=== PATIENT | female | born 1935 | race Caucasian/White ===

== ENCOUNTER 2017-10-11 02:06 | Inpatient (IN) | payer OTHER, MEDICARE ==
[2017-10-11] VITALS (9 sets, daily range): BP systolic 83–120; BP diastolic 47–82
[~2017-10-11] VITALS: Ht 160 cm; Wt 80.7 kg
[~2017-10-11 02:06] MED LIST: ALDACTONE25 MG PO; ALLOPURINOL 10100 M1 PO; ALTACE10 MG PO; ASPIRIN81 M2 PO; BENICAR HCT 401 EAC1 PO; BENICAR40 MG PO; CALCIUM + VITA1 EAC1 PO; CALCIUM + VITA1 EAC2 PO; CARVEDILOL12.5 MG PO; DILTIAZEM 24HR120 M1 PO; GLUCOPHAGE500 MG PO; LANTUS SQ; LASIX 80 MG TAB80 MG PO; NEURONTIN 300300 M1 PO; OMEGA 3-6-9 CO1 EACH PO; POTASSIUM20 PO; VITAMIN D1000 UNI1 PO; ZOCOR 20 MG TAB20 M1 PO
[2017-10-11] MEDS ORDERED: LASIX 20 MG TAB20 MG (02:39)
[2017-10-11] MEDS ORDERED: OMEGA RED (02:40)
[2017-10-11] MEDS ORDERED: VIACTIV SOFT C1 EACH (02:41)
[2017-10-11 02:45] LABS: ABSOLUTE BASOPHILS 0.1 thou/uL (0.0-0.2); ABSOLUTE EOSINOPHILS 0.2 thou/uL (0.0-0.7); ABSOLUTE LYMPHOCYTES 1.9 thou/uL (0.8-5.3); ABSOLUTE MONOCYTES 0.9 thou/uL (0.0-1.2); ABSOLUTE NEUTROPHILS 9.9 thou/uL (1.6-8.1); BASOPHILS 0.8 %; EOSINOPHILS 1.4 %; MCH 32.4 pg (26.0-34.0); MCHC 32.7 g/dL (28.0-37.0); MCV 99.2 fL (80.0-100.0); MONOCYTES 6.7 %; MPV 9.7 fl. (7.2-11.1); NUCLEATED RBCS 0 /100WBC; PLATELET COUNT* 203 thou/uL (150-400); POLYS 76.1 %; RBC 4.94 mil/uL (4.20-5.00); RDW-CV 14.2 % (10.5-14.5)
[2017-10-11 02:59] LABS: ANION GAP 11 mmol/L (7-16); BUN 64 mg/dL (7-18); CALCIUM 8.7 mg/dL (8.5-10.1); CHLORIDE 99 mmol/L (98-107); CO2 24 mmol/L (21-32); CREATININE 2.3 mg/dL (0.6-1.3); POTASSIUM 4.8 mmol/L (3.5-5.1); SODIUM 134 mmol/L (136-145)
[2017-10-11 03:02] LABS: GLUCOSE 600 mg/dL (70-99)
[2017-10-11 03:08] LABS: ALBUMIN 3.1 g/dL (3.4-5.0); ALKALINE PHOSPHATASE 145 U/L (46-116); LIPASE 280 U/L (73-393); NT-PRO BRAIN NAT PEPTIDE 870 pg/mL (<300); SGOT 27 U/L (15-37); SGPT 39 U/L (30-65); TOTAL BILIRUBIN 0.3 mg/dL (<0.1-1.0); TOTAL PROTEIN 7.3 g/dL (6.4-8.2); TROPONIN-I LEVEL <0.06 ng/mL (<0.06)
--- NOTE | 2017-10-11 08:35 | NUR ---
PT ADMITTED TO ROOM 218 DURING THIS SHIFT; VSS, A+OX4, DENIES PAIN. SHE IS ABLE TO COMMUNICATE HER NEEDS TO STAFF EFFECTIEVLY. SHE HAS DENIED THE NEED FOR PAIN MEDICATION UP TO THIS TIME. INSULIN GTT FOR BS>500 STARTED AFTER ADMISSION TO THE FLOOR; TOLERATED WELL BY PT.
--- NOTE | 2017-10-11 10:15 | EKG ---
[place] [address] ELECTROCARDIOGRAM REPORT Name: KECIA WARNER I Room: [address] ADM IN .R.#: [id number] Admission: 10/11/17 Attend Phys: Lenka Brannon MD Discharge: Date of : 39 Report #: [id number] THIS REPORT FOR: //name// [facility] ED Test Date: 2017-10-11 Test Time: 02:23:13 Pat Name: KECIA WARNER Department: Room: [facility] Gender: F Manager Ed: [place] : 1935 Requested By: Anand Han Order Number: [id number] MD: Kelvin Randhawa Measurements Intervals [place] Rate: 48 P: 38 DE: 155 QRS: -44 QRSD: 137 T: 146 QT: 526 QTc: 470 Interpretive Statements Sinus bradycardia with ventricular escape beats nonspecific st changes Electronically Signed On 10-11-2017 10:15:26 CDT by Kelvin Randhawa [email or web address] <ELECTRONICALLY SIGNED> By: Kelvin Randhawa MD, [facility] 10/11/17 1015 0223 0223 Kelvin Randhawa MD, FACC /EPI
[2017-10-11 13:09] LABS: URINE BILIRUBIN NEGATIVE (Negative); URINE BLOOD TRACE (Negative); URINE CLARITY CLEAR; URINE COLOR YELLOW; URINE GLUCOSE-RANDOM 3+ (Negative); URINE KETONES NEGATIVE (Negative); URINE LEUKOCYTES-REFLEX 1+ (Negative); URINE NITRITE-REFLEX NEGATIVE (Negative); URINE PROTEIN NEGATIVE (Negative); URINE SPECIFIC GRAVITY 1.025 (1.005-1.030); URINE UROBILINOGEN 0.2 E.U./dl (0.2-1.0)
[2017-10-11 13:24] LABS: BACTERIA-REFLEX 1-9 Few /HPF (None Seen); CASTS None Seen /LPF (None Seen); CRYSTALS None Seen /LPF (None Seen); MUCUS None Seen strn/LPF (None Seen); SQUAMOUS 4-10 Moderate /LPF (0-3); URINE RBC 3-10 Few /HPF (0-2); URINE WBC-REFLEX 6-15 Few /HPF (0-5)
--- NOTE | 2017-10-11 15:50 | 2DMMODE ---
[place] [address] 2 D/M-MODE ECHOCARDIOGRAM Name: STEPHANELINDAKECIA Melvin Room: [facility] ADM IN [facility]#: [id number] Admission: 10/11/17 Attend Phys: Lenka Brannon, Discharge: Date of : 39 Date of Service: 10/11/17 1550 Report #: [id number] THIS REPORT FOR: //name// APPROVED REPORT Study performed: 10/11/2017 12:10:23 EXAM: Comprehensive 2D, Doppler, and color-flow Echocardiogram Patient Location: In-Patient Room #: 218 Status: routine BSA: 1.82 HR: 58 bpm BP: 113/82 mmHg Rhythm: NSR Other Information Study Quality: Good Indications Atrial Fibrillation hyperglycemia, dehydration Volumes Left Atrial Volume (Systole) LA ESV Index: 31.00 mL/m2 Left Ventricle The left ventricle is normal size. There is mild global hypokinesis. Mild concentric left ventricular hypertrophy. Left ventricular systolic function is mildly decreased. LVEF is 45-50%. Transmitral Doppler flow pattern suggests restrictive physiology. Right Ventricle The right ventricle is normal size. The right ventricular systolic function is normal. Pacemaker lead is present in the right ventricle. Atria Left atrium is mildly dilated. The right atrium size is normal. Aortic Valve The aortic valve is normal in structure. No aortic regurgitation is present. There is no [place] [address] 2 D/M-MODE ECHOCARDIOGRAM Name: KECIA WARNER I Room: [address] IN M.R.#: [id number] Admission: 10/11/17 Attend Phys: Lenka Brannon, Discharge: Date of : 39 Date of Service: 10/11/17 1550 Report #: [id number] Mitral Valve The mitral valve is normal in structure. Trace mitral regurgitation. No evidence of mitral valve stenosis. Tricuspid Valve The tricuspid valve is normal in structure. Trace tricuspid regurgitation. Pulmonic Valve The pulmonary valve is normal in structure. There is no pulmonic valvular regurgitation. Great Vessels The aortic root is normal in size. IVC is normal in size and collapses with >50% inspiration Pericardium There is no pericardial effusion. <Conclusion> The left ventricle is normal size. Mild concentric left ventricular hypertrophy. Left ventricular systolic function is mildly decreased. LVEF is 45-50%. Transmitral Doppler flow pattern suggests restrictive physiology. There is mild global hypokinesis. Left atrium is mildly dilated. Trace mitral regurgitation. Trace tricuspid regurgitation. IVC is normal in size and collapses with >50% inspiration <ELECTRONICALLY SIGNED> By: Hung Zavala MD, FACC 10/11/17 155 [id number] 49 Hung Zavala MD, FACC /INF
--- NOTE | 2017-10-11 15:54 | NUR ---
CM ASSESSMENT: Pt is A&O. Resides at home with her . Dtr at bedside. Pt states that she is pretty independent at home. does most of the cooking and cleaning. Pt independent with IADLS, Pt has grab bars in her shower. Pt uses a walker or cane at home for mobility. No hx of HH or SNF. No home O2. Goal is to return home once medically stable. Open to HH if needed at dc. Following.
--- NOTE | 2017-10-11 19:55 | NUR ---
PATINET RESTING IN BED. UP WITH STANDBY ASSIST, HIGH FALL RISK. SINUS TIFFANIE TO NSR ON MONITOR. AICD INTERROGATED TODAY. BLOOD GLUCOSE Q4H WITH SLIDING SCAL EINSULIN FOR MANAGEMENT. VITAL SIGNS STABLE. HOURLY ROUNDING COMPLETED FOR PATIENT SAFETY. PATINET PROGRESSING TOWARDS GOALS.
[2017-10-12 00:02] VITALS: BP 153/57
[2017-10-12 03:58] VITALS: BP 117/41
--- NOTE | 2017-10-12 04:26 | NUR ---
A&O X4 CALM COOPERITVE. DENIES PAIN. SR-SB PVC BBB ON THE MONITOR. STAND BY ASSIST. FLUID AT 150 ML/H. SEE MAR. SEE CHARTING. VITAL WNL. FALL PRECATUIONS IN PLACE. HOURLY ROUNDING FOR SAFETY.
[2017-10-12 04:52] LABS: HEMATOCRIT 42.6 % (37.0-47.0); HEMOGLOBIN 14.2 gm/dL (12.0-15.0); MCH 32.3 pg (26.0-34.0); MCHC 33.4 g/dL (28.0-37.0); MCV 96.7 fL (80.0-100.0); MPV 9.2 fl. (7.2-11.1); RBC 4.4 mil/uL (4.20-5.00); RDW-CV 13.8 % (10.5-14.5); WBC 10.8 thou/uL (4.0-11.0)
[2017-10-12 05:14] LABS: CALCIUM 8.1 mg/dL (8.5-10.1); MAGNESIUM 2.2 mg/dL (1.8-2.4); POTASSIUM 4.3 mmol/L (3.5-5.1)
[2017-10-12 05:17] LABS: CREATININE 1.2 mg/dL (0.6-1.3)
[2017-10-12 08:15] VITALS: BP 135/62
--- NOTE | 2017-10-12 10:00 | NUR ---
ASSUMED RESPONSIBILITY OF PT THIS AM PT IS ALERT AND ORIENTED BUT VERY FORGETFUL AND CONFUSED AT TIMES PT TRACKING BBB WITH PVCS ON THE MONITOR IN THE 60S CARDIOLOGY SIGNED OFF DENIES ANY PAIN BLOOD SUGARS STILL BE CHECKED AND MAINTAINED AT BEDSIDE AND ALSO FORGETFUL ABOUT CERTAIN THINGS WITH HER HEALTH WELL NOT A VERY RELIABLE SOURCE BED AND CHAIR ALARM ON UP WITH [place] AND WALKER TOOK SHOWER THIS AM WITH SERVICE GIRL IV FLUIDS DC'D
[2017-10-12 11:40] VITALS: BP 133/61
[2017-10-12 15:53] VITALS: BP 118/72
--- NOTE | 2017-10-12 16:02 | NUR ---
RECIEVED O.T. ORDER AND CHART REVIEWED. PT. HAS BEEN COMPLETING ADLS AT INDEPENDENT LEVEL WITH STAFF PRESENT ACCORDING TO PT. SHE DENIES ANY NEED FOR O.T. SERVICES. FAMILY AGREES THAT THEY CAN HELP HER IF NEEDED. THUS, O.T. SERVICES ARE NOT INDICATED AT THIS TIME.
--- NOTE | 2017-10-12 19:11 | NUR ---
ASSUMED CARE OF PT AT APPROXIMATELY 1530. THIS RN AGREES WITH PREVIOUS POLICE DISPATCHER. PT RESTING IN RECLINER WITH FAMILY AT BEDSIDE. PT MED SURG STATUS. PT UP WITH 1 SBA AND WALKER TO BATHROOM. PT WORKED WITH PHYSICAL AND OCCUPATIONAL THERAPY. TOLERATED WELL. PT PROGRESSING TOWARDS GOALS. POSSIBLE DISCHARGE HOME IN AM IF STABLE PER DR ARGUETA. MEDICATIONS PER SEP. PT REPOSITIONS SELF IN BED WITH REMINDERS. HOURLY ROUNDING OBSERVED. BED IN LOW POSITION. BED/CHAIR ALARM IN PLACE. FALL PRECAUTIONS IN PLACE. CALL LIGHT WITHIN REACH. WILL CONTINUE PLAN OF CARE.
[2017-10-12 19:40] VITALS: BP 134/66
[2017-10-13 03:52] LABS: HEMATOCRIT 45.2 % (37.0-47.0); HEMOGLOBIN 15.4 gm/dL (12.0-15.0); MCH 32.7 pg (26.0-34.0); MCV 96.2 fL (80.0-100.0); MPV 9.3 fl. (7.2-11.1); RBC 4.7 mil/uL (4.20-5.00); WBC 10.1 thou/uL (4.0-11.0)
[2017-10-13 03:58] LABS: CALCIUM 9.3 mg/dL (8.5-10.1); CREATININE 1.2 mg/dL (0.6-1.3); MAGNESIUM 2.1 mg/dL (1.8-2.4)
[2017-10-13 04:00] VITALS: BP 170/79
[2017-10-13 04:02] LABS: POTASSIUM 5.3 mmol/L (3.5-5.1)
--- NOTE | 2017-10-13 04:36 | NUR ---
A&O X4 CONFUSED AT TIMES, NEEDS REORINTAION. DENIES PAIN. MED SURG STATUS. PT BLOOD SUGER DROPED TO 74, GIVEN JUICE AND RECHECK BS 112. SEE MAR. SEE CHARTING. VITALS WNL. FALL PRECAUTIONS IN PLACE. HOURLY ROUNDING FOR SAFETY.
[2017-10-13 07:30] VITALS: BP 165/68
[2017-10-13] MEDS ORDERED: CIPRO500 MG PO (11:39)
[2017-10-13 12:38] VITALS: BP 165/68
--- NOTE | 2017-10-13 13:28 | NUR ---
ASSUMED CARE OF PATIENT AFTER MORNING REPORT. ALERT AND ORIENTED X4. ASSESSMENT COMPLETED AND CHARTED. VSS ON JONES AIR. PATIENT HAS HAD NO COMPLAINTS OF PAIN OR NAUSEA THIS SHIFT. PATIENTS IV WAS OUT THIS MORNING, DR WAS MESSAGED AND OK WITH NO IV ACCESS. PATIENT RESTED COMFORTABLY IN THE RECLINER THROUGHOUT SHIFT AND DISCHARGED AT 1315. ALL PERSONAL BELONGINGS, PRESCRIPTIONS AND DISCHARGE INFORMATION SENT WITH PATIENT UPON DISCHARGE.
--- NOTE | 2017-10-17 08:14 | CON ---
[address] [address] CONSULTATION Name: KECIA WARNER Olegario Room: [address] IN M.R.#: [id number] Admission: 10/11/17 Attend Phys: Lenka Brannon MD Discharge: 10/13/17 Date of : 39 Report #: [id number] THIS REPORT FOR: //name// CC: Janice Zavala CARDIOLOGY CONSULTATION INDICATION: Near syncope. HISTORY OF PRESENT ILLNESS: The patient is a very pleasant 81-year-old white female, well known to myself. She has nonischemic cardiomyopathy. Last night, she had an episode of nausea, vomiting, diaphoresis and near syncope. The patient's describes her as appearing pale. During the day, she had no symptoms. Today, she has no symptoms. She was noted to be bradycardic on arrival to the Emergency Room, with a heart rate of 40. Presently, her heart rate is 54. She has sinus bradycardia on the phototypesetting equipment monitor. She does have paroxysmal atrial fibrillation, but for the most part, maintained sinus rhythm. Interrogation of her ICD shows normal function. She did have an episode of pacing at a rate of 40 beats per minute last evening, presumably during a vagal episode. Her troponins are unremarkable. EKG shows sinus rhythm with intraventricular conduction delay, without acute ST or T-wave abnormality. She denies chest pain. She does have mild orthopnea. PAST MEDICAL HISTORY: 1. Nonischemic cardiomyopathy. 2. Paroxysmal atrial fibrillation. 3. GERD. 4. Gout. 5. Hypertension. 6. Hyperlipidemia. 7. Status post ICD placement, 2014. 8. Laparoscopic gastrotomy in 1982 with ulcer repair. FAMILY HISTORY: Noncontributory. SOCIAL HISTORY: The patient does not smoke; she quit smoking in 1986. PHYSICAL EXAMINATION: VITAL SIGNS: Stable. Blood pressure 116/50, pulse 56 and regular. GENERAL: This is a pleasant elderly female, in no distress. Mood and affect appropriate. HEENT: Extraocular muscles intact. Mucous membranes moist. NECK: Examination of the neck shows no jugular venous distention. There [place] [address] CONSULTATION Name: KECIA WARNER Olegario Room: [address]#: [id number] Admission: 10/11/17 Attend Phys: Lenka Brannon MD Discharge: 10/13/17 Date of : 39 Report #: [id number] CHEST: Examination of the chest reveals clear lung cabrera. I do not appreciate wheezes or rales. CARDIAC EXAMINATION: Reveals a regular rhythm, with normal S1 and S2. I do not appreciate gallop or murmur. ABDOMEN: Examination of the abdomen reveals normal bowel sounds. The abdomen is soft and nontender. EXTREMITIES: Examination of the extremities shows no edema. LABORATORY DATA: Labs are reviewed. Sodium 134, potassium 4.8, chloride 99, bicarbonate 24, BUN 64, creatinine 2.3 and serum glucose 600. LFTs within normal limits. Albumin 3.1. Troponin less than 0.06. NT-proBNP 870. White blood cell count 13.0, hemoglobin 16.0 and platelet count 230,000. A 12-lead EKG shows sinus bradycardia, with left bundle branch block. Chest x-ray shows cardiomegaly, with no acute pulmonary abnormality. IMPRESSION AND RECOMMENDATIONS: 1. Near syncope, likely due to vagal episode last night, with abdominal discomfort. I do not see any significant dysrhythmias by interrogation of her defibrillator. 2. Bradycardia. At this point, I am decreasing her carvedilol to 6.25 mg twice daily in an effort to allow her heart rate to improve a little bit. 3. Nonischemic cardiomyopathy. ASHLEY inhibitor presently held due to acute renal failure, continuing low-dose beta shilo. 4. Acute renal failure, etiology not clear. She could be dehydrated. Lasix is presently being held. We will follow with serial labs. 5. Status post implantable cardioverter defibrillator placement in 2014. Normal function by interrogation today. She has received no discharges from her defibrillator. 6. Chronic systolic heart failure, presently fairly well compensated. I am repeating an echocardiogram at this time. <ELECTRONICALLY SIGNED> By: Hung Zavala MD, FACC 10/17/17 0814 1131 [id number] Roge Zavala MD, FACC /nt
== END 2017-10-13 13:15 | disposition home or self-care (01) | DRG 682 ==
LOC: M.ERS 02:06 → M.2W 03:16 → M.TBA-ER 03:16 → M.2W 03:50
PROVIDERS: Emergency Medicine; ADMIT Internal Medicine
DX: N17.9 Acute kidney failure, unspecified (principal); E11.00 Type 2 diabetes mellitus with hyperosmolarity without nonketotic hyperglycemic-hyperosmolar coma (NKHHC); N39.0 Urinary tract infection, site not specified; I42.8 Other cardiomyopathies; I50.22 Chronic systolic (congestive) heart failure; E78.5 Hyperlipidemia, unspecified; I27.20 Pulmonary hypertension, unspecified; I11.0 Hypertensive heart disease with heart failure; E11.40 Type 2 diabetes mellitus with diabetic neuropathy, unspecified; M10.9 Gout, unspecified; K21.9 Gastro-esophageal reflux disease without esophagitis; E11.65 Type 2 diabetes mellitus with hyperglycemia; E86.0 Dehydration; I48.0 Paroxysmal atrial fibrillation; Z93.1 Gastrostomy status; Z79.4 Long term (current) use of insulin; Z95.0 Presence of cardiac pacemaker; Z79.82 Long term (current) use of aspirin; Z79.899 Other long term (current) drug therapy

== ENCOUNTER → 2018-09-15 | Outpatient (CLI) | payer OTHER, MEDICARE ==
[2018-09-15] VITALS (9 sets, daily range): BP systolic 73–137; BP diastolic 32–54
[~2018-09-15] VITALS: Ht 160 cm; Wt 79.4 kg
[~2018-09-15] MED LIST changes: +CIPRO500 MG PO; +COZAAR 25 MG TA25 M1 PO; +LASIX 20 MG TAB20 MG; +OMEGA RED; +VIACTIV SOFT C1 EACH; +VICODIN 5-3001 EACH PO
[2018-09-15 09:50] LABS: HEMATOCRIT 45.5 % (37.0-47.0); HEMOGLOBIN 15.4 gm/dL (12.0-15.0); MCH 33.2 pg (26.0-34.0); MCHC 33.9 g/dL (28.0-37.0); MPV 10.4 fl. (7.2-11.1); RBC 4.64 mil/uL (4.20-5.00); RDW-CV 13.8 % (10.5-14.5); WBC 10.7 thou/uL (4.0-11.0)
[2018-09-15 10:08] LABS: APTT 23.8 Seconds (25.0-31.3); INR 1.1
[2018-09-15 10:22] LABS: ALBUMIN 3.3 g/dL (3.4-5.0); ALKALINE PHOSPHATASE 87 U/L (46-116); ANION GAP 10 mmol/L (7-16); BUN 27 mg/dL (7-18); CALCIUM 9.4 mg/dL (8.5-10.1); CHLORIDE 102 mmol/L (98-107); CHOLESTEROL 156 mg/dL (<200); CO2 24 mmol/L (21-32); CREATININE 1.2 mg/dL (0.6-1.3); GLUCOSE 209 mg/dL (70-99); HDL CHOLESTEROL 55 mg/dL (>40); LDL CHOLESTEROL 62 mg/dL (<100); POTASSIUM 4.7 mmol/L (3.5-5.1); SGOT 44 U/L (15-37); SGPT 40 U/L (30-65); SODIUM 136 mmol/L (136-145); TC:HDL 2.8 Ratio (Not establshd); TOTAL BILIRUBIN 0.4 mg/dL (<0.1-1.0); TOTAL PROTEIN 8.2 g/dL (6.4-8.2); TRIGLYCERIDE 195 mg/dL (<150); VLDL 39 mg/dL (<40)
[2018-09-15 10:23] LABS: SERUM ASSESSMENT Clear
--- NOTE | 2018-09-15 10:56 | EKG ---
[place] [address] ELECTROCARDIOGRAM REPORT Name: KECIA WARNER I Room: [facility]#: [id number] Admission: 09/15/18 Attend Phys: Hung Zavala MD Discharge: Date of : 39 Report #: [id number] THIS REPORT FOR: //name// [facility] Test Date: 2018-09-15 Test Time: 10:33:00 Pat Name: KECIA WARNER Department: Room: Gender: F Web Machine Tender: : 1935 Requested By: Kelvin Randhawa Order Number: [id number] Reading MD: Kelvin Randhawa Measurements Intervals [place] Rate: 59 P: 52 SD: 164 QRS: -42 QRSD: 132 T: 141 QT: 493 QTc: 489 Interpretive Statements Sinus rhythm LEFT VENTRICULAR HYPERTROPHY with repolarization Ventricular bigeminy left axis Baseline wander in lead(s) II,III,aVR,aVL,aVF,V1,V3,V4,V5,V6 Compared to ECG 10/11/2017 02:23:13 Ventricular premature complex(es) now present Electronically Signed On 09-15-2018 10:56:37 CDT by Kelvin Randhawa [email or web address] <ELECTRONICALLY SIGNED> By: Kelvin Randhawa MD, FACC 09/15/18 1056 1033 1033 Kelvin Randhawa MD, FAC /EPI
--- NOTE | 2018-09-15 14:31 | CARD ---
[address] [address] CARDIAC CATH REPORT Name: KECIA WARNER [id number] Admission: 09/15/18 Attend Phys: Hung Zavala MD Discharge: Date of : 39 Report #: [id number] THIS REPORT FOR: //name// APPROVED REPORT Study performed: 09/15/2018 10:27:56 Patient Details Patient Status: Out-Patient Room #: The patient is a 82 year-old female Procedures Performed cardiac cath Indication Dyspnea, Positive stress test Previous Procedures/Diagnoses Previous CHF Admission/Lab Medications/Medications given during procedure Heparin Unfract. Procedure Narrative The patient was brought electively to the Cardiac Catheterization Laboratory and was prepped and draped in a sterile manner. The right wrist was infiltrated with 1% Lidocaine subcutaneous anesthesia. A 6 sheath was inserted into the right radial artery. Coronary angiography was performed using coronary diagnostic catheters. The right coronary system was accessed and visualized with a 5 fr jr4 catheter. The left coronary system was accessed and visualized with a 5 fr fl4 catheter. The left ventricle was accessed and visualized with a Diagnostic catheter. Left ventricular/Aortic Valve gradient assessed via catheter pullback. Left ventriculogram was performed in MOTA projection. Closure device was deployed with a 6 Fr vascband. The patient tolerated the procedure well and there were no complications associated with the procedure. There was no hematoma. Intraoperative Conscious Sedation Sedation start time: 1107 Case end Time: 1135 Versed 2.0 mg Fluoro Time: 3.5 minutes Dose: DAP 89952 cGycm2 845.75 [place] [address] CARDIAC CATH REPORT Name: KECIA WARNER I Room: [facility]#: [id number] Admission: 09/15/18 Attend Phys: Hung Zavala MD Discharge: Date of : 39 Report #: [id number] Contrast Type and Amount: vispaque 110 Coronary Angiography The patient's coronary anatomy is right dominant. [place] Artery Percent Stenosis Left Main: 0 % Prox LAD: 0 % Mid/Distal LAD: 0 % Circumflex: 0 % RCA: 0 % Ramus: 0 % Left Ventriculography The left ventricle is moderately dilated in size with global hypokinetic contractility. The left ventricular ejection fraction is estimated to be 20-25%. There is no mitral insufficiency. Hemodynamics The left ventricular end diastolic pressure is 12 mmHg. There was no gradient across the aortic valve upon pullback. Pullback from the left ventricle to the aorta revealed no gradient across the aortic valve. Conclusion 1. normal coronaries 2. LVEF 20-25% 3. nonischemic cardiomyopathy Recommendations Aggressive Medical Therapy <ELECTRONICALLY SIGNED> By: Kelvin Randhawa MD, [facility] 09/15/18 1430 1430 1430Dameet Randhawa MD, FACC /INF
== END | disposition home or self-care (01) ==
LOC: M.CL 09-14 14:00
PROVIDERS: Internal Medicine Cardiovascular Disease
DX: I42.9 Cardiomyopathy, unspecified (principal); I11.0 Hypertensive heart disease with heart failure; I50.9 Heart failure, unspecified; E78.5 Hyperlipidemia, unspecified; G62.9 Polyneuropathy, unspecified; E11.9 Type 2 diabetes mellitus without complications; M10.9 Gout, unspecified; K21.9 Gastro-esophageal reflux disease without esophagitis; Z95.810 Presence of automatic (implantable) cardiac defibrillator; Z98.890 Other specified postprocedural states; Z79.899 Other long term (current) drug therapy; Z88.8 Allergy status to other drugs, medicaments and biological substances; Z79.82 Long term (current) use of aspirin